=== PATIENT | male | born 1990 | race Caucasian/White ===

== ENCOUNTER 2024-01-07 05:51 | Inpatient (IN) | payer BC, OTHER ==
[2024-01-07] MEDS ORDERED: LORazepam 2 MG/ML INJ IV PRN (06:13)
--- NOTE | 2024-01-07 06:21 | ED ---
Chest Pain HPI - General Chief Complaint: Chest Pain Stated Complaint: Chest pain Time Seen by Provider: 01/07/24 06:01 Source: patient, EMS, RN notes reviewed Mode of arrival: EMS Limitations: no limitations - History of Present Illness Initial Comments: This is a 33 year old male who presents to the emergency department for chest pain. Patient states that he has had chest pain for the last 3 days. Additionally, states that he ran out of his Klonopin at the end of November because he took it too fast. This was prescribed to him. He has also started drinking alcohol more regularly and was in rehab last month for this. He did have alcohol last night, states that he had malt liquor. States that he drinks alcohol to help with his chest pain as well. Patient is shaking significantly in the examination room and reports a history of alcohol withdrawals. Unsure if he has a history of withdrawal seizures, but does state that he shakes pretty v igorously. Plans to check into [facility] as soon as possible for rehab again. Patient also reports a history of asthma and states that he feels short of breath. He has not been using breathing treatments at home, as he states that these make him more anxious, and because he is already anxious he did not want to make it worse. MD Complaint: chest pain - Related Data Home Medications Medication Instructions Recorded Confirmed Acamprosate Calcium [Campral] 666 mg PO TID 01/07/24 01/07/24 Albuterol Inhaler [Ventolin Hfa 1 - 2 puff INHALATION RT-Q6H PRN 01/07/24 01/07/24 Inhaler] Fluticasone Nasal [place] [Flonase 1 spray EA NOSTRIL DAILY PRN 01/07/24 01/07/24 Nasal [place]] Fluticasone/Umeclidin/Vilanter 1 puff INHALATION RT-DAILY 01/07/24 01/07/24 [Trelegy Ellipta 200-62.5-25] Gabapentin 300 mg PO TID PRN 01/07/24 01/07/24 Ipratropium-Albuterol Nebulize 3 ml INHALATION RT-QID PRN 01/07/24 01/07/24 [Duoneb 0.5 mg-3 mg/3 ml Soln] Montelukast [Singulair] 10 mg PO DAILY 01/07/24 01/07/24 clonazePAM [KlonoPIN] 0.5 mg PO DAILY PRN 01/07/24 01/07/24 traZODone HCL 150 mg PO HS 01/07/24 01/07/24 Allergies Allergy/AdvReac Type Severity Reaction Status Date / Time propranolol AdvReac Chest Pain Verified 01/07/24 12:45 Review of Systems ROS Statement: Those systems with pertinent positive or pertinent negative responses have been documented in the HPI. ROS Other: All systems not noted in ROS Statement are negative. Past Medical History Past Medical History: Asthma, COPD Past Surgical History: No Surgical Hx Reported Past Psychological History: Anxiety, Depression Smoking Status: Current every day smoker Past Alcohol Use History: Abuse, Daily Past Drug Use History: Marijuana General Exam Limitations: no limitations General appearance: alert, anxious Head exam: Present: atraumatic, normocephalic, normal inspection Respiratory exam: Present: wheezes, decreased breath sounds, prolonged expiratory Cardiovascular Exam: Present: regular rate, normal rhythm, normal heart sounds. Absent: systolic murmur, diastolic murmur, rubs, gallop, clicks Neurological exam: Present: alert, oriented X3, CN II-XII intact Psychiatric exam: Present: normal affect, normal mood Skin exam: Present: warm, dry, intact, normal color. Absent: rash Course Vital Signs 01/07/24 01/07/24 01/07/24 05:52 07:31 08:38 Temperature 97.5 F L Pulse Rate 97 86 82 Respiratory 24 18 16 Rate Blood Pressure 103/86 124/74 106/74 O2 Sat by Pulse 98 95 Oximetry 01/07/24 01/07/24 01/07/24 10:59 13:07 17:05 Temperature Pulse Rate 93 101 H 96 Respiratory 20 16 Rate Blood Pressure 149/89 146/96 O2 Sat by Pulse 99 98 Oximetry 01/07/24 01/07/24 01/07/24 19:23 21:41 23:13 Temperature Pulse Rate 85 77 76 Respiratory 18 16 18 Rate Blood Pressure 116/78 122/78 O2 Sat by Pulse 99 99 Oximetry Chest Pain MDM - MDM This is a 33 year old male who presents to the emergency department for chest pain. Was pt. sent in by a medical professional or institution? @ -No Did you speak to anyone other than the patient for history? @ -No Did you review nursing and triage notes? @ -Yes, and I agree, it is accurate with regards to the patient's symptoms. Were old charts reviewed? @ -No Differential Diagnosis? @ -Differential Chest Pain: Stable Angina, Unstable Angina, STEMI, NSTEMI Aortic Dissection, Pneumothorax, Musculoskeletal, Esophageal Spasm GERD, Cholecystitis, Pancreatitis, Zoster, this is not meant to be an all-inclusive list. EKG interpreted by me (3pts min.)? @ -EKG interpreted by me demonstrating the following: Sinus rhythm. Ventricular rate 96 bpm, CA interval 154 ms, QRS duration 93 ms, QTc 390 ms. X-rays interpreted by me (1pt min.)? @ -Chest x-ray obtained, my interpretation identifies no localized consolidations or infiltrates. CT interpreted by me (1pt min.)? @ -Not obtained U/S interpreted by me (1pt. min.)? @ -Not obtained What testing was considered but not performed? (CT, X-rays, U/S, labs)? Why? @ -None What meds were considered but not given? Why? @ -None Did you discuss the management of the patient with other professionals? @ -Yes, [facility], who accepts the patient for admission. Did you reconcile home meds? @ -No Was smoking cessation discussed for >3mins.? @ -I discussed smoking cessation for greater than 3 minutes. The risk of smoking were discussed with the patient including but not limited to risks of cancer, stroke, coronary artery disease and COPD. Also discussed with patient were multiple methods of quitting smoking. Lastly we discussed the financial cost of smoking. Was critical care preformed (if so, how long)? @ -No Were there social determinants of health that impacted care today? How? (Homelessness, low income, unemployed, alcoholism, drug addiction, transportation, low edu. Level, literacy, decrease access to med. care, residential, rehab)? @ -Alcoholism, contributing to his withdrawal symptoms today. Was there de-escalation of care discussed even if they declined? (Discuss DNR or withdrawal of care, Hospice)? @ -No What co-morbidities impacted this encounter? (DM, HTN, Smoking, COPD, CAD, Cancer, CVA, Hep., AIDS, mental health diagnosis, sleep apnea, morbid obesity)? @ -Smoking, asthma, COPD, alcohol abuse Was patient admitted / discharged? @ -Admitted. Lab work unremarkable. Troponin negative. Chest x-ray reveals no acute process. Patient pacing and notably anxious on arrival with initial CIWA of 16. CIWA protocol was initiated in the patient was admitted to medicine for alcohol withdrawals. Serial troponins were ordered, however chest pain unlikely to be cardiac in nature. Undiagnosed new problem with uncertain prognosis? @ -None Drug Therapy requiring intensive monitoring for toxicity (Heparin, Nitro, Insulin, Cardizem)? @ -None Were any procedures done? @ -None Diagnosis/symptom? @ -Alcohol withdrawals Acute, or Chronic, or Acute on Chronic? @ -Acute Uncomplicated (without systemic symptoms) or Complicated (systemic symptoms)? @ -Complicated Side effects of treatment? @ -None Exacerbation, Progression, or Severe Exacerbation] @ -Not applicable Poses a threat to life or bodily function? @ -Yes Return precautions reviewed in depth, the patient is instructed to return to the emergency department with any new, worsening, or concerning symptoms. Patient verbalized understanding. This case was discussed in detail with the attending ED physician, Dr. Ruelas. Presentation, findings, and treatment plan discussed in detail as well. Disposition Clinical Impression: Alcohol withdrawal, Nicotine dependence Disposition: ADMITTED IP TO THIS [facility] Time of Disposition: 11:36
[2024-01-07] MEDS: THIAMINE 100 MG/ML 2 ML VIAL IM STA (06:43)
[2024-01-07] MEDS: KETOROLAC 15 MG/ML 1 ML VIAL IVP STA (06:44)
[2024-01-07] MEDS: LORazepam 2 MG/ML INJ IV PRN ×3 (06:44→23:47)
[2024-01-07 07:02] LABS: INR 0.9 (<1.2); Prothrombin Time 10.1 sec (10.0-12.5)
[2024-01-07 07:08] LABS: ALT 20 U/L (4-49); AST 43 U/L (17-59); African American GFR (CKD) >90 (>60 ml/min/1.73 sqM); Albumin 4.3 g/dL (3.5-5.0); Alcohol 51 mg/dL; Alkaline Phosphatase 88 U/L (38-126); Anion Gap 12 mmol/L; Blood Urea Nitrogen 8 mg/dL (9-20); Calcium 9.4 mg/dL (8.4-10.2); Carbon Dioxide 18 mmol/L (22-30); Chloride 107 mmol/L (98-107); Glucose 85 mg/dL (74-99); Magnesium 1.9 mg/dL (1.6-2.3); Non-African American GFR(CKD) >90 (>60 ml/min/1.73 sqM); Potassium 3.6 mmol/L (3.5-5.1); Sodium 137 mmol/L (137-145); Total Bilirubin 1.1 mg/dL (0.2-1.3); Total Protein 6.7 g/dL (6.3-8.2)
--- NOTE | 2024-01-07 07:41 | XR ---
EXAMINATION TYPE: XR chest 2V DATE OF EXAM: 01/07/2024 COMPARISON: None HISTORY: 33-year-old male with chest pain TECHNIQUE: PA and lateral views FINDINGS: The cardiomediastinal silhouette, aorta, and pulmonary vasculature are within normal limits. Mild hyp erinflation likely relates to depth of inspiration rather than emphysema given patient's age. Lungs a nd pleural spaces are clear. IMPRESSION: No acute cardiopulmonary process.
[2024-01-07 08:01] LABS: Basophils % (A) 0 %; Eosinophils # (A) 0.3 k/uL (0-0.7); Eosinophils % (A) 3 %; HCT 40.9 % (39.0-53.0); HGB 13.5 gm/dL (13.0-17.5); Lymphocytes % (A) 9 %; MCH 31.8 pg (25.0-35.0); MCV 96.2 fL (80.0-100.0); Mean Platelet Volume 8.5; Monocytes # (A) 0.5 k/uL (0-1.0); Monocytes % (A) 5 %; Neutrophils # (A) 9.4 k/uL (1.3-7.7); Neutrophils % (A) 83 %; Platelet Count 230 k/uL (150-450); RBC 4.25 m/uL (4.30-5.90); RDW 13.1 % (11.5-15.5); WBC 11.3 k/uL (3.8-10.6)
[2024-01-07 11:30] LABS: Amphetamine Screen,Urine Not Detected (NotDetected); Barbiturate Screen,Urine Not Detected (NotDetected); Benzodiazepines Screen,Urine Detected (NotDetected); Cocaine Screen,Urine Not Detected (NotDetected); Methadone Screen, Urine Not Detected (NotDetected); Opiate Screen,Urine Not Detected (NotDetected); Oxycodone Screen, Urine Not Detected (NotDetected); Phencyclidine Screen,Urine Not Detected (NotDetected); Tricyclic Antidepressant,Urine Not Detected (NotDetected); Urn Cannabinoid Scrn Detected (NotDetected)
[2024-01-07] MEDS ORDERED: ACETAMINOPHEN TAB 325 MG TAB PO PRN (11:37)
[2024-01-07] MEDS ORDERED: NALOXONE 0.4 MG/ML 1 ML VIAL IV PRN (11:37)
[2024-01-07] MEDS: PANTOPRAZOLE 40 MG/10 ML VIAL IVP SCH (12:46)
[2024-01-07] MEDS: NICOTINE 21MG/24HR PATCH TRANSDERM SCH (12:46)
--- NOTE | 2024-01-07 12:56 | P.HPIM ---
History of Present Illness Patient is a 33-year-old male admitted is being admitted for alcohol withdrawal patient has drink was yesterday and patient serum alcohol level was 51. Patient is having shaking improved with Ativan. Patient is willing to quit alcohol was complaining of some nonspecific chest pain which is noncardiac in nature troponins are negative EKG showed nonspecific ST-T wave changes. Patient is willing to quit alcohol patient was in alcohol rehabilitation program mental November. Patient had any fever chills nausea vomiting dysuria. Urine drug screen is positive for benzodiazepines and marijuana REVIEW OF SYSTEMS: CONSTITUTIONAL: No fever, no malaise, no fatigue. HEENT: No recent visual problems or hearing problems. Denied any sore throat. CARDIOVASCULAR: No chest pain, orthopnea, PND, no palpitations, no syncope. PULMONARY: No shortness of breath, no cough, no hemoptysis. GASTROINTESTINAL: No diarrhea, no nausea, no vomiting, no abdominal pain. NEUROLOGICAL: No headaches, no weakness, no numbness. HEMATOLOGICAL: Denies any bleeding or petechiae. GENITOURINARY: Denies any burning micturition, frequency, or urgency. MUSCULOSKELETAL/RHEUMATOLOGICAL: Denies any joint pain, swelling, or any muscle pain. ENDOCRINE: Denies any polyuria or polydipsia. The rest of the 14-point review of systems is negative. PHYSICAL EXAMINATION: GENERAL: The patient is alert and oriented x3, not in any acute distress. Well developed, well nourished. Patient is shaking and appears to have significant alcohol withdrawals HEENT: Pupils are round and equally reacting to light. EOMI. No scleral icterus. No conjunctival pallor. Normocephalic, atraumatic. No pharyngeal erythema. No thyromegaly. CARDIOVASCULAR: S1 and S2 present. No murmurs, rubs, or gallops. PULMONARY: Chest is clear to auscultation, no wheezing or crackles. ABDOMEN: Soft, nontender, nondistended, normoactive bowel sounds. No palpable organomegaly. MUSCULOSKELETAL: No joint swelling or deformity. EXTREMITIES: No cyanosis, clubbing, or pedal edema. NEUROLOGICAL: Gross neurological examination did not reveal any focal deficits. SKIN: No rashes. Assessment and plan -Alcohol withdrawal: Patient is on Ativan CIWA protocol titrate as was addressed with this protocol. -Possible alcoholic gastritis: Patient was started on Protonix -Marijuana use and nicotine use: Counseling was provided patient was started on 21 mcg of nicotine patch smokes about 20 cigarettes a day. -COPD without any acute exacerbation -Alcohol abuse social work consultation, extensive counseling was provided DVT prophylaxis: Lovenox as I do not expect much of ambulation Past Medical History Past Medical History: Asthma, COPD Past Surgical History: No Surgical Hx Reported Past Psychological History: Anxiety, Depression Smoking Status: Current every day smoker Past Alcohol Use History: Abuse, Daily Past Drug Use History: Marijuana Medications and Allergies Home Medications Medication Instructions Recorded Confirmed Type Acamprosate Calcium [Campral] 666 mg PO TID 01/07/24 01/07/24 History Albuterol Inhaler [Ventolin Hfa 1 - 2 puff INHALATION RT-Q6H PRN 01/07/24 01/07/24 History Inhaler] Fluticasone Nasal [place] [Flonase 1 spray EA NOSTRIL DAILY PRN 01/07/24 01/07/24 History Nasal [place]] Fluticasone/Umeclidin/Vilanter 1 puff INHALATION RT-DAILY 01/07/24 01/07/24 History [Trelegy Ellipta 200-62.5-25] Gabapentin 300 mg PO TID PRN 01/07/24 01/07/24 History Ipratropium-Albuterol Nebulize 3 ml INHALATION RT-QID PRN 01/07/24 01/07/24 History [Duoneb 0.5 mg-3 mg/3 ml Soln] Montelukast [Singulair] 10 mg PO DAILY 01/07/24 01/07/24 History clonazePAM [KlonoPIN] 0.5 mg PO DAILY PRN 01/07/24 01/07/24 History traZODone HCL 150 mg PO HS 01/07/24 01/07/24 History Allergies Allergy/AdvReac Type Severity Reaction Status Date / Time propranolol AdvReac Chest Pain Verified 01/07/24 12:45 Physical Exam Vitals: Vital Signs Temp Pulse Resp BP Pulse Ox 01/07/24 10:59 93 20 149/89 99 01/07/24 08:38 82 16 106/74 01/07/24 07:31 86 18 124/74 95 01/07/24 05:52 97.5 F L 97 24 103/86 98 Intake and Output 01/06/24 01/07/2424 22:59 06:59 14:59 Other: Weight 58.967 kg Results CBC & Chem 7: 01/07/24 07:33 01/07/24 06:46 Labs: Abnormal Lab Results - Last 24 Hours (Table) 01/07/24 01/07/24 01/07/24 Range/Units 06:46 06:46 07:33 WBC 11.3 H (3.8-10.6) k/uL RBC 4.25 L (4.30-5.90) m/uL Neutrophils # 9.4 H (1.3-7.7) k/uL Carbon Dioxide 18 L (22-30) mmol/L BUN 8 L (9-20) mg/dL U Benzodiazepines Scrn Detected H (NotDetected) U Marijuana (THC) Screen Detected H (NotDetected)
[2024-01-07] MEDS: SODIUM CHLORIDE 0.9% 1,000 ML IV SCH (17:13)
[2024-01-07] MEDS: KETOROLAC 15 MG/ML 1 ML VIAL IVP PRN (17:13)
[2024-01-07] MEDS: ENOXAPARIN 40 MG/0.4 ML SYRINGE SQ SCH (17:17)
[2024-01-07] MEDS: traZODone HCL 50 MG TAB PO SCH (22:59)
[2024-01-08] MEDS: PANTOPRAZOLE 40 MG TABLET PO SCH (10:29)
[2024-01-08] MEDS: THIAMINE 100 MG TAB PO SCH (10:29)
--- NOTE | 2024-01-08 16:49 | P.PN ---
Subjective Progress Note Date: 01/08/24 Patient is a 33-year-old male admitted is being admitted for alcohol withdrawal patient has drink was yesterday and patient serum alcohol level was 51. Patient is having shaking improved with Ativan. Patient is willing to quit alcohol was complaining of some nonspecific chest pain which is noncardiac in nature troponins are negative EKG showed nonspecific ST-T wave changes. Patient is willing to quit alcohol patient was in alcohol rehabilitation program november. Patient had any fever chills nausea vomiting dysuria. Urine drug screen is positive for benzodiazepines and marijuana 01/08/2024 Patient is evaluated today on the medical floor. He remains on IV Ativan CIWA protocol. He is not reporting any nausea vomiting or diarrhea. He has tolerated some diet. He is tremulous at baseline and is requiring frequent doses of Ativan. He is in place a nicotine patch which he states is helping. He is being hydrated. REVIEW OF SYSTEMS: CONSTITUTIONAL: No fever, no malaise, no fatigue. HEENT: No recent visual problems or hearing problems. Denied any sore throat. CARDIOVASCULAR: No chest pain, orthopnea, PND, no palpitations, no syncope. PULMONARY: No shortness of breath, no cough, no hemoptysis. GASTROINTESTINAL: No diarrhea, no nausea, no vomiting, no abdominal pain. NEUROLOGICAL: No headaches, no weakness, no numbness. PHYSICAL EXAMINATION: GENERAL: The patient is alert and oriented x3, not in any acute distress. Well developed, well nourished. Patient is shaking and appears to have significant alcohol withdrawals HEENT: Pupils are round and equally reacting to light. EOMI. No scleral icterus. No conjunctival pallor. Normocephalic, atraumatic. No pharyngeal erythema. No thyromegaly. CARDIOVASCULAR: S1 and S2 present. No murmurs, rubs, or gallops. PULMONARY: Chest is clear to auscultation, no wheezing or crackles. ABDOMEN: Soft, nontender, nondistended, normoactive bowel sounds. No palpable organomegaly. MUSCULOSKELETAL: No joint swelling or deformity. EXTREMITIES: No cyanosis, clubbing, or pedal edema. NEUROLOGICAL: Gross neurological examination did not reveal any focal deficits. SKIN: No rashes. Assessment and plan -Alcohol withdrawal: Patient is on Ativan CIWA protocol continue to monitor for acute alcohol withdrawal -Possible alcoholic gastritis: Patient was started on Protonix -Marijuana use and nicotine use: Counseling was provided patient was started on 21 mcg of nicotine patch smokes about 20 cigarettes a day. -COPD without any acute exacerbation -Alcohol abuse social work consultation, extensive counseling was provided DVT prophylaxis: Lovenox as I do not expect much of ambulation GI prophylaxis with Protonix as mentioned Full code He is not quite ready for discharge she is still requiring frequent doses of IV Ativan and tremulous at baseline. We will continue to monitor the patient overnight and repeat labs in the morning. The impression and plan of care has been dictated by Jazmine Hadley, Nurse Practitioner as directed. Dr. bAbey MD I have performed a history and physical examination and medical decision making of this patient, discussed the same with the dictator, and agree with the dictators assessment and plan as written, documented as a scribe. Based on total visit time, I have performed more than 50% of this visit. Objective - Vital Signs Vital signs: Vital Signs Temp 98.0 F 01/08/24 11:54 Pulse 79 01/08/24 11:54 Resp 16 01/08/24 11:54 BP 122/76 01/08/24 11:54 Pulse Ox 98 01/08/24 11:54 FiO2 Intake & Output 01/07/24 01/08/24 01/08/24 18:59 06:59 18:59 Intake Total 1020 Balance 1020 Weight 58.967 kg Intake: Intake, IV Titration 900 Amount Sodium Chloride 0.9% 1, 900 000 ml @ 75 mls/hr IV . [id number] [facility] Rx#:[id number] Oral 120 - Labs CBC & Chem 7: 01/07/24 07:33 01/07/24 06:46 Assessment and Plan Time with Patient: Less than 30
[2024-01-08] MEDS ORDERED: IPRATROPIUM-ALBUTEROL 3 ML NEB INHALATION PRN (22:17)
[2024-01-09] MEDS: SYMBICORT 80-4.5 MCG INHALER INHALATION SCH (07:20)
[2024-01-09] MEDS ORDERED: FLUTICASONE 50MCG/SPRAY NASAL 16GM EA NOSTRIL PRN (09:00)
[2024-01-09] MEDS: MONTELUKAST 10 MG TAB PO SCH (09:38)
[2024-01-09] MEDS: LORazepam 1 MG TAB PO PRN (11:48)
--- NOTE | 2024-01-09 16:53 | P.PN ---
Subjective Progress Note Date: 01/09/24 Patient is a 33-year-old male admitted is being admitted for alcohol withdrawal patient has drink was yesterday and patient serum alcohol level was 51. Patient is having shaking improved with Ativan. Patient is willing to quit alcohol was complaining of some nonspecific chest pain which is noncardiac in nature troponins are negative EKG showed nonspecific ST-T wave changes. Patient is willing to quit alcohol patient was in alcohol rehabilitation program mental November. Patient had any fever chills nausea vomiting dysuria. Urine drug screen is positive for benzodiazepines and marijuana 01/08/2024 Patient is evaluated today on the medical floor. He remains on IV Ativan CIWA protocol. He is not reporting any nausea vomiting or diarrhea. He has tolerated some diet. He is tremulous at baseline and is requiring frequent doses of Ativan. He is in place a nicotine patch which he states is helping. He is being hydrated. 01/09/2024 Patient is evaluated today on the medical floor. He remains on IV CIWA protocol. Troponin level is negative x 3. Hemodynamically he is stable. He remains tr emulous and requiring IV ativan every 3 hours overnight. Discussed with patient about starting librium and patient is agreeing hoping to be able to cut back on the ativan. REVIEW OF SYSTEMS: CONSTITUTIONAL: No fever, no malaise, no fatigue. HEENT: No recent visual problems or hearing problems. Denied any sore throat. CARDIOVASCULAR: No chest pain, orthopnea, PND, no palpitations, no syncope. PULMONARY: No shortness of breath, no cough, no hemoptysis. GASTROINTESTINAL: No diarrhea, no nausea, no vomiting, no abdominal pain. NEUROLOGICAL: No headaches, no weakness, no numbness. PHYSICAL EXAMINATION: GENERAL: The patient is alert and oriented x3, not in any acute distress. Well developed, well nourished. Patient is shaking and appears to have significant alcohol withdrawals HEENT: Pupils are round and equally reacting to light. EOMI. No scleral icterus. No conjunctival pallor. Normocephalic, atraumatic. No pharyngeal erythema. No thyromegaly. CARDIOVASCULAR: S1 and S2 present. No murmurs, rubs, or gallops. PULMONARY: Chest is clear to auscultation, no wheezing or crackles. ABDOMEN: Soft, nontender, nondistended, normoactive bowel sounds. No palpable organomegaly. MUSCULOSKELETAL: No joint swelling or deformity. EXTREMITIES: No cyanosis, clubbing, or pedal edema. NEUROLOGICAL: Gross neurological examination did not reveal any focal deficits. SKIN: No rashes. Assessment and plan -Alcohol withdrawal: Patient is on Ativan CIWA protocol continue to monitor for acute alcohol withdrawal will be started on oral librium scheduled and continue with the PRN ativan. -Possible alcoholic gastritis: Patient was started on Protonix -Marijuana use and nicotine use: Counseling was provided patient was started on 21 mcg of nicotine patch smokes about 20 cigarettes a day. -COPD without any acute exacerbation -Alcohol abuse social work consultation, extensive counseling was provided DVT prophylaxis: Lovenox GI prophylaxis with Protonix as mentioned Full code He is not quite ready for discharge she is still requiring frequent doses of IV Ativan and tremulous at baseline. Started on librium. Follow up in the AM. The impression and plan of care has been dictated by Jazmine Hadley, Nurse Practitioner as directed. Dr. Abbey MD I have performed a history and physical examination and medical decision making of this patient, discussed the same with the dictator, and agree with the dictators assessment and plan as written, documented as a scribe. Based on total visit time, I have performed more than 50% of this visit. Objective - Vital Signs Vital signs: Vital Signs Temp 97.5 F L 01/09/24 07:53 Pulse 77 01/09/24 07:53 Resp 16 01/09/24 07:53 BP 136/83 01/09/24 07:53 Pulse Ox 97 01/09/24 07:53 FiO2 Intake & Output 01/08/24 01/09/24 01/09/24 18:59 06:59 18:59 Other: Voiding Method Toilet Toilet Urinal Urinal # Voids 3 - Labs CBC & Chem 7: 01/07/24 07:33 01/07/24 06:46 Assessment and Plan Time with Patient: Less than 30
[2024-01-09] MEDS: chlordiazePOXIDE 25 MG CAP PO SCH (17:42)
[2024-01-10 02:41] VITALS: TEMP 97.5
[2024-01-10 08:15] VITALS: BP 123/82; PULSE 83; RESP 16
[2024-01-10 08:59] LABS: Basophils # (A) 0.04 X 10*3/uL (0.00-0.10); Basophils % (A) 0.7 %; Eosinophils # (A) 0.45 X 10*3/uL (0.04-0.35); Eosinophils % (A) 7.4 %; HCT 39.3 % (39.6-50.0); HGB 13.3 g/dL (13.0-17.0); Lymphocytes # (A) 1.39 X 10*3/uL (0.90-5.00); Lymphocytes % (A) 22.9 %; MCH 30.9 pg (27.0-32.0); MCHC 33.8 g/dL (32.0-37.0); MCV 91.2 FL (80.0-97.0); Mean Platelet Volume 10.6 FL (9.5-12.2); Monocytes # (A) 0.69 X 10*3/uL (0.20-1.00); Monocytes % (A) 11.4 %; NRBC Per 100 WBC 0 X 10*3/uL (0.00-0.01); Neutrophils # (A) 3.48 X 10*3/uL (1.80-7.70); Neutrophils % (A) 57.4 %; Platelet Count 218 X 10*3/uL (140-440); RBC 4.31 X 10*6/uL (4.40-5.60); RDW 12.2 % (11.5-14.5); WBC 6.06 X 10*3/uL (4.50-10.00)
[2024-01-10 09:15] LABS: BUN/Creat Ratio 7.67 Ratio (12.00-20.00); Blood Urea Nitrogen 6.9 mg/dL (9.0-27.0); Calcium 9.2 mg/dL (8.7-10.3); Carbon Dioxide 21.2 mmol/L (21.6-31.8); Chloride 103 mmol/L (96-109); Glucose 82 mg/dL (70-110); Magnesium 1.8 mg/dL (1.5-2.4); Potassium 3.7 mmol/L (3.5-5.5); Sodium 137 mmol/L (135-145)
--- NOTE | 2024-01-11 21:17 | P.DS ---
Providers Date of admission: 01/07/24 12:24 Attending physician: Jada Waterman Primary care physician: Stated None Hospital Course: Final Diagnosis -Alcohol withdrawal: treated with librium and ativan CIWA protocol. -Possible alcoholic gastritis: Patient was started on Protonix -Marijuana use and nicotine use: Counseling was provided patient was started on 21 mcg of nicotine patch smokes about 20 cigarettes a day. -COPD without any acute exacerbation -Alcohol abuse social work consultation, extensive counseling was provided Discharge Disposition Patient stable for discharge home and will continue on oral Librium table for the next 6 days. Patient is advised to quit alcohol and he is agreeing on wanting to discharge home. He is given referrals to [facility] in [place]. He is recommended to follow up with his PCP Dr. Pancho Ray in 2 to 3 days. Hospital Course Patient is a 33-year-old male admitted is being admitted for alcohol withdrawal patient has drink was the day before he came in to the hospital and patient serum alcohol level was 51 on admission. He comes in for acute alcohol withdrawal and impending DTs and has been started on ativan CIWA protocol, thiamine and B1 vitamins. Patient is having shaking improved with Ativan. Patient is willing to quit alcohol was complaining of some nonspecific chest pain which is noncardiac in nature troponins are negative EKG showed nonspecific ST-T wave changes. Patient is willing to quit alcohol patient was in alcohol rehabilitation program in November. Patient denies any fever chills nausea vomiting dysuria. Urine drug screen is positive for benzodiazepines and marij uana. Patient was monitored on the medical floor with clinical improvement. His blood work remains unremarkable. Hemodynamically he is stable. He will be discharged home with above mentioned recommendations. Please see medication reconciliation for a list of current medications. Thank you for allowing us to participate in the care of this patient. The impression and plan of care has been dictated by Jazmine Hadley Nurse Practitioner as directed. Dr. Abbey MD I have performed a history and physical examination and medical decision making of this patient, discussed the same with the dictator, and agree with the dictators assessment and plan as written, documented as a scribe. Based on total visit time, I have performed more than 50% of this visit. Patient Condition at Discharge: Stable Plan - Discharge Summary New Discharge Prescriptions: New Pantoprazole [Protonix] 40 mg PO AC-BRKFST #30 tab chlordiazePOXIDE HCl [Librium] 25 mg PO TID 3 Days #12 capsule Thiamine [Vitamin B-1] 100 mg PO DAILY #30 tab Continue Montelukast [Singulair] 10 mg PO DAILY Gabapentin 300 mg PO TID PRN PRN Reason: withdrawl/nerve pain Fluticasone Nasal [place] [Flonase Nasal [place]] 1 spray EA NOSTRIL DAILY PRN PRN Reason: Allergy Symptoms Ipratropium-Albuterol Nebulize [Duoneb 0.5 mg-3 mg/3 ml Soln] 3 ml INHALATION RT-QID PRN PRN Reason: Shortness Of Breath traZODone HCL 150 mg PO HS Fluticasone/Umeclidin/Vilanter [Trelegy Ellipta 200-62.5-25] 1 puff INHALATION RT-DAILY Albuterol Inhaler [Ventolin Hfa Inhaler] 1 - 2 puff INHALATION RT-Q6H PRN PRN Reason: Shortness Of Breath Acamprosate Calcium [Campral] 666 mg PO TID Discontinued clonazePAM [KlonoPIN] 0.5 mg PO DAILY PRN PRN Reason: Anxiety Discharge Medication List Acamprosate Calcium [Campral] 666 mg PO TID 01/07/24 [History] Albuterol Inhaler [Ventolin Hfa Inhaler] 1 - 2 puff INHALATION RT-Q6H PRN 01/07/24 [History] Fluticasone Nasal [place] [Flonase Nasal [place]] 1 spray EA NOSTRIL DAILY PRN 01/07/24 [History] Fluticasone/Umeclidin/Vilanter [Trelegy Ellipta 200-62.5-25] 1 puff INHALATION RT-DAILY 01/07/24 [History] Gabapentin 300 mg PO TID PRN 01/07/24 [History] Ipratropium-Albuterol Nebulize [Duoneb 0.5 mg-3 mg/3 ml Soln] 3 ml INHALATION RT-QID PRN 01/07/24 [History] Montelukast [Singulair] 10 mg PO DAILY 01/07/24 [History] traZODone HCL 150 mg PO HS 01/07/24 [History] Pantoprazole [Protonix] [facility] 01/10/24 [Rx] Thiamine [Vitamin B-1] 100 mg PO DAILY #30 tab 01/10/24 [Rx] chlordiazePOXIDE HCl [Librium] 25 mg PO TID 3 Days #12 capsule 01/11/24 [Rx] Follow up Appointment(s)/Referral(s): [facility] [Outside] - 02/07/24 12:00 pm ([facility] UP APPT WITH RICHARD - PATIENT AWARE OF TIME) Pancho Ray MD [REFERRING] - 1-2 Days Activity/Diet/Wound Care/Special Instructions: PCP: Pancho Ray, DO - Address: [address] [place] [id number] - [facility] P: [phone] Discharge/Stand Alone Forms: AA Meetings [place], Who Do I Call?, Community Resources, Outpatient Counseling, Inp Substance Abuse Facilities Discharge Disposition: HOME SELF-CARE
== END 2024-01-10 13:08 | disposition home or self-care (01) | DRG 775 ==
LOC: EC 05:51 → 6NMEDSUR 12:23 → OBSVTOIN 12:24 → 6NMEDSUR 18:01 → 5NMEDONC 20:37
PROVIDERS: ADMIT Internal Medicine; ATTEND Internal Medicine
PROC: HZ2ZZZZ Detoxification Services for Substance Abuse Treatment (ICD-10-PCS; principal; 2024-01-07)
DX: F10.239 Alcohol dependence with withdrawal, unspecified (principal); K29.20 Alcoholic gastritis without bleeding; F32.A Depression, unspecified; F17.210 Nicotine dependence, cigarettes, uncomplicated; F41.9 Anxiety disorder, unspecified; Y90.2 Blood alcohol level of 40-59 mg/100 ml; J44.89 Other specified chronic obstructive pulmonary disease; Z71.41 Alcohol abuse counseling and surveillance of alcoholic; Z71.51 Drug abuse counseling and surveillance of drug abuser
CPT/HCPCS: 36415; 71046; 80048; 80053; 80306; 80320; 83735; 84484; 85025; 85610; 85730; 93005; 94640; 96361; 96372; 96374; 96375; 96376; 99285

== ENCOUNTER 2024-01-10 23:05 | Emergency (ER) | payer OTHER ==
[2024-01-10 23:16] VITALS: TEMP 98.5
[2024-01-10] MEDS: LORazepam 2 MG/ML INJ IV STA (23:29)
[2024-01-10] MEDS: SODIUM CHLORIDE 0.9% 1,000 ML IV STA ×2 (23:29→23:30)
[2024-01-10] MEDS: SODIUM CHLORIDE 0.9% 500 ML 500 ML IV STA (23:30)
--- NOTE | 2024-01-10 23:30 | ED ---
Anxiety HPI - General Chief Complaint: Anxiety Stated Complaint: Chest pain, Withdrawal Time Seen by Provider: 01/10/24 23:11 Source: patient, EMS, RN notes reviewed, old records reviewed Mode of arrival: EMS Limitations: no limitations, altered mental status - History of Present Illness Initial Comments: This is a 33-year-old male to the ER for evaluation today. Patient of recent hospital admission. Patient was just discharged earlier this morning and complains and today for altered mental status lightheadedness weakness not feeling well with occasional nausea. Patient does admit to drinking alcohol today. MD Complaint: anxiety, heart racing, other (Intoxication) -: days(s) Symptoms: palpitations, muscle cramps Place: home Previous History of Same: Yes Severity: moderate Quality: constant Provoking factors: emotional stress Worsens With: nothing Associated symptoms: chest pain, diaphoresis - Related Data Home Medications: Home Medications Medication Instructions Recorded Confirmed Acamprosate Calcium [Campral] 666 mg PO TID 01/07/24 01/07/24 Albuterol Inhaler [Ventolin Hfa 1 - 2 puff INHALATION RT-Q6H PRN 01/07/24 01/07/24 Inhaler] Fluticasone Nasal [place] [Flonase 1 spray EA NOSTRIL DAILY PRN 01/07/24 01/07/24 Nasal [place]] Fluticasone/Umeclidin/Vilanter 1 puff INHALATION RT-DAILY 01/07/24 01/07/24 [Trelegy Ellipta 200-62.5-25] Gabapentin 300 mg PO TID PRN 01/07/24 01/07/24 Ipratropium-Albuterol Nebulize 3 ml INHALATION RT-QID PRN 01/07/24 01/07/24 [Duoneb 0.5 mg-3 mg/3 ml Soln] Montelukast [Singulair] 10 mg PO DAILY 01/07/24 01/07/24 traZODone HCL 150 mg PO HS 01/07/24 01/07/24 Previous Rx's Medication Instructions Recorded Pantoprazole [Protonix] 40 mg PO AC-BRKFST #30 tab 01/10/24 Thiamine [Vitamin B-1] 100 mg PO DAILY #30 tab 01/10/24 chlordiazePOXIDE HCl [Librium] 25 mg PO TID 3 Days #12 capsule 01/11/24 Allergies/Adverse Reactions: Allergies Allergy/AdvReac Type Severity Reaction Status Date / Time propranolol AdvReac Chest Pain Verified 01/10/24 23:53 Review of Systems ROS Statement: Those systems with pertinent positive or pertinent negative responses have been documented in the HPI. ROS Other: All systems not noted in ROS Statement are negative. Past Medical History Past Medical History: Asthma, COPD History of Any Multi-Drug Resistant Organisms: None Reported Past Surgical History: No Surgical Hx Reported Past Psychological History: Anxiety, Depression Smoking Status: Current every day smoker Past Alcohol Use History: Abuse, Daily Past Drug Use History: Marijuana General Exam Limitations: no limitations General appearance: alert, in no apparent distress Head exam: Present: atraumatic, normocephalic, normal inspection Eye exam: Present: normal appearance, PERRL, EOMI. Absent: scleral icterus, conjunctival injection, periorbital swelling ENT exam: Present: normal exam, mucous membranes moist Neck exam: Present: normal inspection. Absent: tenderness, meningismus, lymphadenopathy Respiratory exam: Present: normal lung sounds bilaterally. Absent: respiratory distress, wheezes, rales, rhonchi, stridor Cardiovascular Exam: Present: regular rate, normal rhythm, normal heart sounds. Absent: systolic murmur, diastolic murmur, rubs, gallop, clicks GI/Abdominal exam: Present: soft, normal bowel sounds. Absent: distended, tenderness, guarding, rebound, rigid Extremities exam: Present: normal inspection, full ROM, normal capillary refill. Absent: tenderness, pedal edema, joint swelling, calf tenderness Back exam: Present: normal inspection Neurological exam: Present: alert, oriented X3, CN II-XII intact Psychiatric exam: Present: normal affect, normal mood Skin exam: Present: warm, dry, intact, normal color. Absent: rash Course Vital Signs 01/10/24 01/11/24 01/11/24 23:12 00:49 02:06 Temperature 98.5 F Pulse Rate 99 72 84 Respiratory 18 15 20 Rate Blood Pressure 136/84 114/62 120/64 O2 Sat by Pulse 99 96 96 Oximetry 01/11/24 01/11/24 04:00 06:25 Temperature Pulse Rate 72 63 Respiratory 13 18 Rate Blood Pressure 109/72 135/94 O2 Sat by Pulse Oximetry - Reevaluation(s) Reevaluation #1: 01/10/24 23:57 Medical records reviewed Reevaluation #2: 01/10/24 23:57 Patient symptoms unchanged Reevaluation #3: Patient informed of results and questions answered Reevaluation #4: Was pt. sent in by a medical professional or institution (, WHIT, BATCH OPERATOR, urgent care, hospital, or shelter...) When possible be specific @ -no Did you speak to anyone other than the patient for history (EMS, parent, family, police, friend...)? What history was obtained from this source @ -no Did you review nursing and triage notes (agree or disagree)? Why? @ -agree Are old charts reviewed (outside hosp., previous admission, EMS record, old EKG, old radiological studies, urgent care reports/EKG's, shelter records)? Report findings @ -yes Differential Diagnosis (chest pain, altered mental status, abdominal pain women, abdominal pain men, vaginal bleeding, weakness, fever, dyspnea, syncope, headache, dizziness, GI bleed, back pain, seizure, CVA, palpatations, mental health, musculoskeletal)? @ -prior EKG interpreted by me (3pts min.). @ -yes X-rays interpreted by me (1pt min.). @ -Yes negative for acute disease CT interpreted by me (1pt min.). @ -no U/S interpreted by me (1pt. min.). @ -no What testing was considered but not performed or refused? (CT, X-rays, U/S, labs)? Why? @ -none What meds were considered but not given or refused? Why? @ -none Did you discuss the management of the patient with other professionals (professionals i.e. , WHIT, BATCH OPERATOR, lab, RT, psych nurse, web content & social media manager, roller picker, teacher, corporation officer, pillowcase cleaner)? Give summary @ -no Was smoking cessation discussed for >3mins.? @ -no Was critical care preformed (if so, how long)? @ -no Were there social determinants of health that impacted care today? How? (Homelessness, low income, unemployed, alcoholism, drug addiction, transportat ion, low edu. Level, literacy, decrease access to med. care, correction, rehab)? @ -none Was there de-escalation of care discussed even if they declined (Discuss DNR or withdrawal of care, Hospice)? DNR status @ -no What co-morbidities impacted this encounter? (DM, HTN, Smoking, COPD, CAD, Cancer, CVA, ARF, Chemo, Hep., AIDS, mental health diagnosis, sleep apnea, morbid obesity)? @ -none Was patient admitted / discharged? Hospital course, mention meds given and route, prescriptions, significant lab abnormalities, going to OR and other pertinent info. @ - 33 male to ER with alcohol intoxication and anxiety. Patient symptoms improved here in the ER resting comfortably and can be discharged home Discharge Undiagnosed new problem with uncertain prognosis? @ -no Drug Therapy requiring intensive monitoring for toxicity (Heparin, Nitro, Insulin, Cardizem)? @ -no Were any procedures done? @ -no Diagnosis/symptom? @ -Alcohol intoxication, anxiety Acute, or Chronic, or Acute on Chronic? @ -Acute Uncomplicated (without systemic symptoms) or Complicated (systemic symptoms)? @ -Complicated Side effects of treatment? @ -no Exacerbation, Progression, or Severe Exacerbation? @ -exacerbation Poses a threat to life or bodily function? How? (Chest pain, [place], [place], pneumonia, PE, COPD, DKA, ARF, appy, cholecystitis, CVA, Diverticulitis, Homicidal, Suicidal, threat to staff... and all critical care pts) @ -no Reevaluation #5: Differential Altered Mental Status: Hypoglycemia, DKA, hypercapnia, ETOH, overdose, CO poisoning, trauma, myxedema coma, HTN encephalopathy, infection, encephalitis, psychosis, intercranial hemorrhage, hepatic encephalopathy, meningitis, CVA, this is not meant to be an all-inclusive list Medical Decision Making - Medical Decision Making 33 male to ER with alcohol intoxication and anxiety. Patient symptoms improved here in the ER resting comfortably and can be discharged home - Lab Data Result diagrams: 01/10/24 23:25 01/10/24 23:25 Lab Results 01/10/24 01/10/24 01/10/24 Range/Units 23:25 23:25 23:25 WBC 7.0 (3.8-10.6) k/uL RBC 4.58 (4.30-5.90) m/uL Hgb 14.4 (13.0-17.5) gm/dL Hct 43.1 (39.0-53.0) % MCV 94.1 (80.0-100.0) fL MCH 31.5 (25.0-35.0) pg MCHC 33.4 (31.0-37.0) g/dL RDW 12.6 (11.5-15.5) % Plt Count 236 (150-450) k/uL MPV 7.4 Neutrophils % 58 % Lymphocytes % 24 % Monocytes % 9 % Eosinophils % 5 % Basophils % 1 % Neutrophils # 4.0 (1.3-7.7) k/uL Lymphocytes # 1.7 (1.0-4.8) k/uL Monocytes # 0.6 (0-1.0) k/uL Eosinophils # 0.3 (0-0.7) k/uL Basophils # 0.0 (0-0.2) k/uL PT 10.1 (10.0-12.5) sec INR 0.9 (<1.2) APTT 25.9 (22.0-30.0) sec Sodium 141 (137-145) mmol/L Potassium 3.6 (3.5-5.1) mmol/L Chloride 111 H (98-107) mmol/L Carbon Dioxide 18 L (22-30) mmol/L Anion Gap 12 mmol/L BUN <2 L (9-20) mg/dL Creatinine 0.64 L (0.66-1.25) mg/dL Est GFR (CKD-EPI)AfAm >90 (>60 ml/min/1.73 sqM) Est GFR (CKD-EPI)NonAf >90 (>60 ml/min/1.73 sqM) Glucose 88 (74-99) mg/dL Plasma Lactic Acid Wilber (0.7-2.0) mmol/L Calcium 9.1 (8.4-10.2) mg/dL Phosphorus 4.0 (2.5-4.5) mg/dL Magnesium 2.3 (1.6-2.3) mg/dL Total Bilirubin 0.4 (0.2-1.3) mg/dL AST 22 (17-59) U/L ALT 12 (4-49) U/L Alkaline Phosphatase 65 (38-126) U/L Troponin I (0.000-0.034) ng/mL Total Protein 6.5 (6.3-8.2) g/dL Albumin 4.1 (3.5-5.0) g/dL Lipase 146 (23-300) U/L Serum Alcohol 156 mg/dL 01/10/24 01/10/24 Range/Units 23:25 23:25 WBC (3.8-10.6) k/uL RBC (4.30-5.90) m/uL Hgb (13.0-17.5) gm/dL Hct (39.0-53.0) % MCV (80.0-100.0) fL MCH (25.0-35.0) pg MCHC (31.0-37.0) g/dL RDW (11.5-15.5) % Plt Count (150-450) k/uL MPV Neutrophils % % Lymphocytes % % Monocytes % % Eosinophils % % Basophils % % Neutrophils # (1.3-7.7) k/uL Lymphocytes # (1.0-4.8) k/uL Monocytes # (0-1.0) k/uL Eosinophils # (0-0.7) k/uL Basophils # (0-0.2) k/uL PT (10.0-12.5) sec INR (<1.2) APTT (22.0-30.0) sec Sodium (137-145) mmol/L Potassium (3.5-5.1) mmol/L Chloride (98-107) mmol/L Carbon Dioxide (22-30) mmol/L Anion Gap mmol/L BUN (9-20) mg/dL Creatinine (0.66-1.25) mg/dL Est GFR (CKD-EPI)AfAm (>60 ml/min/1.73 sqM) Est GFR (CKD-EPI)NonAf (>60 ml/min/1.73 sqM) Glucose (74-99) mg/dL Plasma Lactic Acid Wilber 1.8 (0.7-2.0) mmol/L Calcium (8.4-10.2) mg/dL Phosphorus (2.5-4.5) mg/dL Magnesium (1.6-2.3) mg/dL Total Bilirubin (0.2-1.3) mg/dL AST (17-59) U/L ALT (4-49) U/L Alkaline Phosphatase (38-126) U/L Troponin I <0.012 (0.000-0.034) ng/mL Total Protein (6.3-8.2) g/dL Albumin (3.5-5.0) g/dL Lipase (23-300) U/L Serum Alcohol mg/dL - EKG Data -: EKG Interpreted by Me (EKG is sinus 86 MA 170 QRS 101 QTc 401) - Radiology Data Radiology results: report reviewed (Chest x-ray is negative for acute disease), image reviewed Disposition Clinical Impression: Alcohol withdrawal, Acute anxiety, Panic attack, Panic disorder Disposition: HOME SELF-CARE Instructions (If sedation given, give patient instructions): Generalized Anxiety Disorder (ED) Is patient prescribed a controlled substance at d/c from ED?: No Referrals: None,Stated [Primary Care Provider] - 1-2 days Time of Disposition: 04:00
[2024-01-10 23:59] LABS: Basophils % (A) 1 %; Eosinophils # (A) 0.3 k/uL (0-0.7); Eosinophils % (A) 5 %; HCT 43.1 % (39.0-53.0); HGB 14.4 gm/dL (13.0-17.5); Lymphocytes # (A) 1.7 k/uL (1.0-4.8); Lymphocytes % (A) 24 %; MCH 31.5 pg (25.0-35.0); MCHC 33.4 g/dL (31.0-37.0); MCV 94.1 fL (80.0-100.0); Mean Platelet Volume 7.4; Monocytes # (A) 0.6 k/uL (0-1.0); Monocytes % (A) 9 %; Neutrophils % (A) 58 %; Platelet Count 236 k/uL (150-450); RBC 4.58 m/uL (4.30-5.90); RDW 12.6 % (11.5-15.5)
[2024-01-11 00:12] LABS: ALT 12 U/L (4-49); AST 22 U/L (17-59); African American GFR (CKD) >90 (>60 ml/min/1.73 sqM); Albumin 4.1 g/dL (3.5-5.0); Alkaline Phosphatase 65 U/L (38-126); Anion Gap 12 mmol/L; Blood Urea Nitrogen <2 mg/dL (9-20); Calcium 9.1 mg/dL (8.4-10.2); Carbon Dioxide 18 mmol/L (22-30); Chloride 111 mmol/L (98-107); Glucose 88 mg/dL (74-99); Lipase 146 U/L (23-300); Magnesium 2.3 mg/dL (1.6-2.3); Non-African American GFR(CKD) >90 (>60 ml/min/1.73 sqM); Potassium 3.6 mmol/L (3.5-5.1); Sodium 141 mmol/L (137-145); Total Bilirubin 0.4 mg/dL (0.2-1.3); Total Protein 6.5 g/dL (6.3-8.2)
--- NOTE | 2024-01-11 00:12 | XR ---
EXAMINATION TYPE: XR chest 2V DATE OF EXAM: 01/10/2024 COMPARISON: Chest x-ray January 07, 2024 HISTORY: Weakness TECHNIQUE: Frontal and lateral views of the chest are obtained. FINDINGS: There is no suspicious new focal air space opacity, pleural effusion, or pneumothorax seen . The cardiac silhouette size is stable and within normal limits. The osseous structures are intac t. IMPRESSION: No acute process. No significant change from prior.
[2024-01-11 00:14] LABS: Alcohol 156 mg/dL
[2024-01-11 00:16] LABS: INR 0.9 (<1.2); Partial Thromboplastin Time 25.9 sec (22.0-30.0); Prothrombin Time 10.1 sec (10.0-12.5)
[2024-01-11] MEDS: LORazepam 1 MG TAB PO STA (05:18)
[2024-01-11 06:46] VITALS: BP 135/94; PULSE 63; RESP 18
== END 2024-01-11 06:56 | disposition home or self-care (01) ==
LOC: EC 23:05
DX: F10.939 Alcohol use, unspecified with withdrawal, unspecified (principal); F41.0 Panic disorder [episodic paroxysmal anxiety]; F17.200 Nicotine dependence, unspecified, uncomplicated; F12.90 Cannabis use, unspecified, uncomplicated; Z88.8 Allergy status to other drugs, medicaments and biological substances; Y90.6 Blood alcohol level of 120-199 mg/100 ml
CPT/HCPCS: 36415; 93005; 80053; 83605; 83690; 83735; 84100; 84484; 85025; 85610; 85730; 80320; 71046; 99285; 96374; 96361; J2060

== ENCOUNTER → 2024-02-28 | Outpatient (CLI) | payer OTHER ==
[2024-02-28 20:51] LABS: Alternaria alternata IgE 3.51 kU/L; Birch IgE <0.10 kU/L; Cat Epith & Dander IgE >100.00 kU/L; Cladosporian herbarum IgE <0.10 kU/L; Clam IgE <0.10 kU/L; Codfish IgE 0.12 kU/L; Egg White IgE <0.10 kU/L; Elm IgE <0.10 kU/L; Maple (Box Elder) IgE 0.33 kU/L; Oak IgE 0.25 kU/L; Peanut IgE 0.31 kU/L; Ragweed,Common IgE 3.79 kU/L; Red Top (Bentgrass) IgE 9.22 kU/L; Scallop IgE <0.10 kU/L; Shrimp IgE <0.10 kU/L; Walnut IgE (Food) <0.10 kU/L
== END | disposition home or self-care (01) ==
LOC: LABWHC1 09:06
PROVIDERS: ATTEND Internal Medicine Critical Care Medicine
DX: J45.909 Unspecified asthma, uncomplicated (principal)
CPT/HCPCS: 36415; 82785; 85008; 86003

== ENCOUNTER 2024-03-26 21:44 | Observation (INO) | payer OTHER ==
--- NOTE | 2024-03-26 22:06 | ED ---
Psych HPI - General Source: patient, RN notes reviewed <Lena Yuen - Last Filed: 03/26/24 22:05> <Vamsi Carreon - Last Filed: 03/27/24 04:16> - General Stated Complaint: Anxiety , weakness Time Seen by Provider: 03/26/24 21:59 - History of Present Illness Initial Comments: Quick noteis a 33-year-old male presents emergency department chief complaint of depression and anxiety. Patient states that he has been experiencing anxiety after witnessing his uncle . (Lena Yuen) 33-year-old male with history of alcohol use disorder presenting with chief complaint of anxiety and depression. Patient states that he has had several stressful life events ongoing lately, including the recent of his uncle and his family attempting to evict him from his home. States that this has caused him to turn back to alcohol. He cannot tell me how much he normally drinks in a day nor can he tell me how much he is drinking today. He is confused while obtaining the history. He denies any injury or trauma. He denies any physical pain or symptoms today. (Vamsi Carreon) - Related Data Home Medications Medication Instructions Recorded Confirmed Albuterol Inhaler [Ventolin Hfa 1 - 2 puff INHALATION RT-Q6H PRN 01/07/24 03/19/24 Inhaler] Fluticasone/Umeclidin/Vilanter 1 puff INHALATION RT-DAILY 01/07/24 03/19/24 [Trelegy Ellipta 200-62.5-25] Ipratropium-Albuterol Nebulize 3 ml INHALATION RT-QID PRN 01/07/24 03/19/24 [Duoneb 0.5 mg-3 mg/3 ml Soln] Montelukast [Singulair] 10 mg PO DAILY 01/07/24 03/19/24 traZODone HCL 150 mg PO HS 01/07/24 03/19/24 Nicotine 21Mg/24Hr Patch [Habitrol] 1 patch TRANSDERM DAILY 03/19/24 03/19/24 busPIRone HCL [Buspar] 7.5 mg PO BID 03/19/24 03/19/24 clonazePAM [KlonoPIN] 0.5 mg PO TID PRN 03/19/24 03/19/24 predniSONE See Taper PO DIRECTED 03/19/24 03/19/24 Allergies Allergy/AdvReac Type Severity Reaction Status Date / Time propranolol AdvReac Chest Pain Verified 03/26/24 22:15 Review of Systems ROS Other: All systems not noted in ROS Statement are negative. <Lena Yuen - Last Filed: 03/26/24 22:05> ROS Other: All systems not noted in ROS Statement are negative. <Vamsi Carreon - Last Filed: 03/27/24 04:16> ROS Statement: Those systems with pertinent positive or pertinent negative responses have been documented in the HPI. Past Medical History Past Medical History: Asthma, COPD History of Any Multi-Drug Resistant Organisms: None Reported Past Surgical History: No Surgical Hx Reported Past Psychological History: Anxiety, Depression Smoking Status: Current every day smoker Past Alcohol Use History: Abuse, Daily Past Drug Use History: Marijuana <Lena Yuen - Last Filed: 03/26/24 22:05> General Exam <Lena Yuen - Last Filed: 03/26/24 22:05> General appearance: alert, in no apparent distress Head exam: Present: atraumatic, normocephalic Eye exam: Present: normal appearance Neck exam: Present: normal inspection Respiratory exam: Present: normal lung sounds bilaterally. Absent: respiratory distress, wheezes, rales, rhonchi, stridor Cardiovascular Exam: Present: regular rate, normal rhythm, normal heart sounds. Absent: systolic murmur, diastolic murmur, rubs, gallop, clicks Neurological exam: Present: alert, altered (Intoxicated) Skin exam: Present: normal color <Vamsi Carreon - Last Filed: 03/27/24 04:16> - General Exam Comments Initial Comments: Visual Physical Exam Vital signs reviewed General: Well-appearing, nontoxic, no acute distress. Head: Normocephalic, atraumatic Eyes: PERRLA, EOMI ENT: Airway patent Chest: Nonlabored breathing Skin: No visual rash, normal skin tone Neuro: Alert and oriented 3 Musculoskeletal: No gross abnormalities (Stieler,Lena) Course Vital Signs 03/26/24 22:08 Temperature 97.5 F L Pulse Rate 95 Respiratory 18 Rate Blood Pressure 131/83 O2 Sat by Pulse 100 Oximetry Medical Decision Making <Lena Yuen - Last Filed: 03/26/24 22:05> - Lab Data Result diagrams: 03/27/24 00:08 03/27/24 00:44 <Vamsi Carreon - Last Filed: 03/27/24 04:16> - Medical Decision Making I completed the quick note portion of this chart signed Lena Yuen PA-C (Lena Yuen) Was pt. sent in by a medical professional or institution ([facility], MEDICAL SERVICES COORDINATOR, urgent care, hospital, or fdc...) When possible be specific @ -No Did you speak to anyone other than the patient for history (EMS, parent, family, police, friend...)? What history was obtained from this source @ -No Did you review nursing and triage notes (agree or disagree)? Why? @ -I reviewed and agree with nursing and triage notes Were old charts reviewed (outside hosp., previous admission, EMS record, old EKG, old radiological studies, urgent care reports/EKG's, fdc records)? Report findings @ -No old charts were reviewed Differential Diagnosis (chest pain, altered mental status, abdominal pain women, abdominal pain men, vaginal bleeding, weakness, fever, dyspnea, syncope, headache, dizziness, GI bleed, back pain, seizure, CVA, palpatations, mental he alth, musculoskeletal)? @ -Differential Mental Health Depression, anxiety, bipolar, psychosis, schizophrenia, borderline personality, situational depression, adjustment disorder, behavioral disorder, brain tumor, malingering, substance abuse, encephalopathy, medication reaction, dementia, hypothyroidism, degenerative neurologic disorder, lupus.... This is not meant to be all-inclusive list EKG interpreted by me (3pts min.). @ -As above X-rays interpreted by me (1pt min.). @ -None done CT interpreted by me (1pt min.). @ -None done U/S interpreted by me (1pt. min.). @ -None done What testing was considered but not performed or refused? (CT, X-rays, U/S, labs)? Why? @ -None What meds were considered but not given or refused? Why? @ -None Did you discuss the management of the patient with other professionals (professionals i.e. , [facility], MEDICAL SERVICES COORDINATOR, lab, RT, psych nurse, social worker masters, negative cleaner, teacher, financial services officer, case picker)? Give summary @ -I spoke with Ranye Maria from [facility] who accepted admission Was smoking cessation discussed for >3mins.? @ -No Was critical care preformed (if so, how long)? @ -No Were there social determinants of health that impacted care today? How? (Lit elessness, low income, unemployed, alcoholism, drug addiction, transportation, low edu. Level, literacy, decrease access to med. care, group home, rehab)? @ -No Was there de-escalation of care discussed even if they declined (Discuss DNR or withdrawal of care, Hospice)? DNR status @ -No What co-morbidities impacted this encounter? (DM, HTN, Smoking, COPD, CAD, Cancer, CVA, ARF, Chemo, Hep., AIDS, mental health diagnosis, sleep apnea, morbid obesity)? @ -Alcohol use disorder Was patient admitted / discharged? Hospital course, mention meds given and route, prescriptions, significant lab abnormalities, going to OR and other pertinent info. @ -33-year-old male presenting for anxiety and depression. Admits to alcohol abuse. Serum alcohol 298. Patient will be admitted for alcohol intoxication w ith evaluation by psychiatry tomorrow. I discussed this case my attending Dr. Greene. Undiagnosed new problem with uncertain prognosis? @ -No Drug Therapy requiring intensive monitoring for toxicity (Heparin, Nitro, Insulin, Cardizem)? @ -No Were any procedures done? @ -No Diagnosis/symptom? @ -Alcohol intoxication Acute, or Chronic, or Acute on Chronic? @ -Acute Uncomplicated (without systemic symptoms) or Complicated (systemic symptoms)? @ -Complicated Side effects of treatment? @ -No Exacerbation, Progression, or Severe Exacerbation? @ -No Poses a threat to life or bodily function? How? (Chest pain, [place], [place], pneumonia, PE, COPD, DKA, ARF, appy, cholecystitis, CVA, Diverticulitis, Homicidal, Suicidal, threat to staff... and all critical care pts) @ -Yes (Vamsi Carreon) - Lab Data Lab Results 03/26/24 03/27/24 03/27/24 Range/Units 22:20 00:08 00:08 WBC 7.0 (3.8-10.6) k/uL RBC 5.47 (4.30-5.90) m/uL Hgb 16.4 (13.0-17.5) gm/dL Hct 52.4 (39.0-53.0) % MCV 95.7 (80.0-100.0) fL MCH 29.9 (25.0-35.0) pg MCHC 31.2 (31.0-37.0) g/dL RDW 13.7 (11.5-15.5) % Plt Count 309 (150-450) k/uL MPV 7.9 Neutrophils % 49 % Lymphocytes % 33 % Monocytes % 8 % Eosinophils % 6 % Basophils % 1 % Neutrophils # 3.4 (1.3-7.7) k/uL Lymphocytes # 2.3 (1.0-4.8) k/uL Monocytes # 0.5 (0-1.0) k/uL Eosinophils # 0.4 (0-0.7) k/uL Basophils # 0.1 (0-0.2) k/uL Sodium (137-145) mmol/L Potassium (3.5-5.1) mmol/L Chloride (98-107) mmol/L Carbon Dioxide (22-30) mmol/L Anion Gap mmol/L BUN (9-20) mg/dL Creatinine (0.66-1.25) mg/dL Est GFR (CKD-EPI)AfAm (>60 ml/min/1.73 sqM) Est GFR (CKD-EPI)NonAf (>60 ml/min/1.73 sqM) Glucose (74-99) mg/dL Calcium (8.4-10.2) mg/dL Phosphorus (2.5-4.5) mg/dL Magnesium (1.6-2.3) mg/dL Total Bilirubin (0.2-1.3) mg/dL AST (17-59) U/L ALT (4-49) U/L Alkaline Phosphatase (38-126) U/L Ammonia 12 (<30) umol/L Total Protein (6.3-8.2) g/dL Albumin (3.5-5.0) g/dL Urine Opiates Screen Not Detected (NotDetected) Ur Oxycodone Screen Not Detected (NotDetected) Urine Methadone Screen Not Detected (NotDetected) Ur Barbiturates Screen Not Detected (NotDetected) U Tricyclic Antidepress Not Detected (NotDetected) Ur Phencyclidine Scrn Not Detected (NotDetected) Ur Amphetamines Screen Not Detected (NotDetected) U Methamphetamines Scrn Not Detected (NotDetected) U Benzodiazepines Scrn Not Detected (NotDetected) Urine Cocaine Screen Not Detected (NotDetected) U Marijuana (THC) Screen Detected H (NotDetected) Serum Alcohol mg/dL 03/27/24 Range/Units 00:44 WBC (3.8-10.6) k/uL RBC (4.30-5.90) m/uL Hgb (13.0-17.5) gm/dL Hct (39.0-53.0) % MCV (80.0-100.0) fL MCH (25.0-35.0) pg MCHC (31.0-37.0) g/dL RDW (11.5-15.5) % Plt Count (150-450) k/uL MPV Neutrophils % % Lymphocytes % % Monocytes % % Eosinophils % % Basophils % % Neutrophils # (1.3-7.7) k/uL Lymphocytes # (1.0-4.8) k/uL Monocytes # (0-1.0) k/uL Eosinophils # (0-0.7) k/uL Basophils # (0-0.2) k/uL Sodium 147 H (137-145) mmol/L Potassium 4.3 (3.5-5.1) mmol/L Chloride 112 H (98-107) mmol/L Carbon Dioxide 25 (22-30) mmol/L Anion Gap 10 mmol/L BUN 9 (9-20) mg/dL Creatinine 0.68 (0.66-1.25) mg/dL Est GFR (CKD-EPI)AfAm >90 (>60 ml/min/1.73 sqM) Est GFR (CKD-EPI)NonAf >90 (>60 ml/min/1.73 sqM) Glucose 84 (74-99) mg/dL Calcium 8.7 (8.4-10.2) mg/dL Phosphorus 5.1 H (2.5-4.5) mg/dL Magnesium 2.2 (1.6-2.3) mg/dL Total Bilirubin 0.5 (0.2-1.3) mg/dL AST 57 (17-59) U/L ALT 41 (4-49) U/L Alkaline Phosphatase 84 (38-126) U/L Ammonia (<30) umol/L Total Protein 7.0 (6.3-8.2) g/dL Albumin 4.4 (3.5-5.0) g/dL Urine Opiates Screen (NotDetected) Ur Oxycodone Screen (NotDetected) Urine Methadone Screen (NotDetected) Ur Barbiturates Screen (NotDetected) U Tricyclic Antidepress (NotDetected) Ur Phencyclidine Scrn (NotDetected) Ur Amphetamines Screen (NotDetected) U Methamphetamines Scrn (NotDetected) U Benzodiazepines Scrn (NotDetected) Urine Cocaine Screen (NotDetected) U Marijuana (THC) Screen (NotDetected) Serum Alcohol 298 H* mg/dL Disposition <Lena Yuen - Last Filed: 03/26/24 22:05> Time of Disposition: 04:13 <Vamsi Carreon - Last Filed: 03/27/24 04:16> Clinical Impression: Alcohol intoxication, Depression Disposition: ADMITTED IP TO THIS [facility] Condition: Fair Referrals: None,Stated [Primary Care Provider] - 1-2 days
[2024-03-26 23:10] LABS: Amphetamine Screen,Urine Not Detected (NotDetected); Barbiturate Screen,Urine Not Detected (NotDetected); Benzodiazepines Screen,Urine Not Detected (NotDetected); Cocaine Screen,Urine Not Detected (NotDetected); Methadone Screen, Urine Not Detected (NotDetected); Opiate Screen,Urine Not Detected (NotDetected); Oxycodone Screen, Urine Not Detected (NotDetected); Phencyclidine Screen,Urine Not Detected (NotDetected); Tricyclic Antidepressant,Urine Not Detected (NotDetected); Urn Cannabinoid Scrn Detected (NotDetected)
[2024-03-27] MEDS ORDERED: LORazepam 2 MG/ML INJ IV PRN (00:07)
[2024-03-27 00:37] LABS: Basophils # (A) 0.1 k/uL (0-0.2); Basophils % (A) 1 %; Eosinophils # (A) 0.4 k/uL (0-0.7); Eosinophils % (A) 6 %; HCT 52.4 % (39.0-53.0); HGB 16.4 gm/dL (13.0-17.5); Lymphocytes # (A) 2.3 k/uL (1.0-4.8); Lymphocytes % (A) 33 %; MCH 29.9 pg (25.0-35.0); MCHC 31.2 g/dL (31.0-37.0); MCV 95.7 fL (80.0-100.0); Mean Platelet Volume 7.9; Monocytes # (A) 0.5 k/uL (0-1.0); Monocytes % (A) 8 %; Neutrophils # (A) 3.4 k/uL (1.3-7.7); Neutrophils % (A) 49 %; Platelet Count 309 k/uL (150-450); RBC 5.47 m/uL (4.30-5.90); RDW 13.7 % (11.5-15.5)
[2024-03-27] MEDS: LORazepam 2 MG/ML INJ IV PRN ×2 (00:38→11:27)
[2024-03-27] MEDS: THIAMINE 100 MG/ML 2 ML VIAL IM STA (00:38)
[2024-03-27 03:57] LABS: ALT 41 U/L (4-49); AST 57 U/L (17-59); African American GFR (CKD) >90 (>60 ml/min/1.73 sqM); Albumin 4.4 g/dL (3.5-5.0); Alkaline Phosphatase 84 U/L (38-126); Anion Gap 10 mmol/L; Blood Urea Nitrogen 9 mg/dL (9-20); Calcium 8.7 mg/dL (8.4-10.2); Carbon Dioxide 25 mmol/L (22-30); Chloride 112 mmol/L (98-107); Glucose 84 mg/dL (74-99); Magnesium 2.2 mg/dL (1.6-2.3); Non-African American GFR(CKD) >90 (>60 ml/min/1.73 sqM); Phosphorus 5.1 mg/dL (2.5-4.5); Potassium 4.3 mmol/L (3.5-5.1); Sodium 147 mmol/L (137-145); Total Bilirubin 0.5 mg/dL (0.2-1.3)
[2024-03-27 03:59] LABS: Alcohol 298 mg/dL
[2024-03-27] MEDS ORDERED: NALOXONE 0.4 MG/ML 1 ML VIAL IV PRN (04:11)
[2024-03-27] MEDS ORDERED: ONDANSETRON 4 MG/2 ML VIAL IVP PRN (04:11)
[2024-03-27] MEDS: SODIUM CHLORIDE 0.9% 1,000 ML IV SCH (04:57)
[2024-03-27] MEDS ORDERED: ALBUTEROL NEBULIZED 2.5 MG/3 ML INHALATION PRN (13:18)
[2024-03-27] MEDS ORDERED: HYDROcodone/APAP 5-325MG 1 EACH TAB PO PRN (13:20)
[2024-03-27] MEDS ORDERED: TEMAZEPAM 15 MG CAP PO PRN (13:20)
[2024-03-27] MEDS ORDERED: traZODone HCL 100 MG TAB PO PRN (13:32)
--- NOTE | 2024-03-27 13:39 | XR ---
EXAMINATION TYPE: XR chest 1V portable DATE OF EXAM: 03/27/2024 COMPARISON: 01/10/2024 HISTORY: Shortness of breath TECHNIQUE: Single frontal view of the chest is obtained. FINDINGS: There is no focal air space opacity, pleural effusion, or pneumothorax seen. The cardiac silhouette size is within normal limits. The osseous structures are intact. Hyperexpansion can be s een with COPD. 2 mm upper lobe nodule too small to characterize. IMPRESSION: No acute process.
--- NOTE | 2024-03-27 13:40 | P.CN ---
Psychiatric Consult - . Consult date: 03/27/24 Consult:: 03/27/24 12:39 IDENTIFYING DATA: This patient is a 33-year-old male, currently lives in a house alone, used to live with his uncle however he , he is unemployed, he is single he has no kids. REASON FOR REFERRAL: Psychiatry was consulted for depression HISTORY OF PRESENT ILLNESS: The patient presented to the hospital yesterday complaining of depression and anxiety. Patient had claimed that his uncle recently . He also made comments of his family attempting to evict him. He was admitting to increasing alcohol use recently, claims that he has been drinking about 3 cans of beer a day. Urine drug screen is positive for THC. Patient's blood alcohol was 298. Nurse taking care of patient states that he is not suicidal however going through withdrawals, is anxious requiring Ativan. Patient was seen today at the bedside, agreeable to speak to consumer loan underwriter. He appeared to be mildly upset, states that he had to see his uncle in front of him, claims that he was try to give him CPR. He states that the next day he had a seizure and was attempting to go to the primary care physician however came to the hospital. States that he has been going through probate court to keep his house and that has been stressful for him. He states that he has been having depression, anxiety. States that his sleep and appetite are poor. Denies any paranoia at this time, claims that has been to rehab several times in the past, states that he does not have alcohol cravings, he was fairly future oriented and did not want to be admitted to the mental health unit, denies any access to guns or weapons. At this time patient denies any suicidal or homical ideations, intent or plan. Patient denies any auditory, visual hallucinations and denies any paranoia or delusions. Patients admits to using cigarettes daily, claims that he drinks several cans of beer a day, states that he smokes marijuana occasionally, denies any other recreational drug use. PAST PSYCHIATRIC HISTORY: Patient has a a history of depression and anxiety, alcohol use. Patient is currently on Klonopin, BuSpar, trazodone. States that his last psychiatric hospitalization was in [facility] in August 2023. Claims that he used to follow-up at [facility] however has not done so in a while. Patient denies any history of suicide attempts in the past. Past Medical History: Asthma, COPD History of Any Multi-Drug Resistant Organisms: None Reported Past Surgical History: No Surgical Hx Reported Past Psychological History: Anxiety, Depression Smoking Status: Current every day smoker Past Alcohol Use History: Abuse, Daily Past Drug Use History: Marijuana ALLERGIES: as per EMR. CHEMICAL DEPENDENCY HISTORY: as per HPI. FAMILY PSYCHIATRIC/SUBSTANCE USE HISTORY: Denies SOCIAL HISTORY: Patient was born and raised in [place]. Claims that he currently lives alone in a house, states that he used to live with his uncle however he . States that he has no kids he is single. He is unemployed currently, used to work as a salad chef. He claims that he does not have any legal history. MENTAL STATUS EXAM: General Appearance: Patient appears to be thin, unkempt appearance stated age is alert, attempts to be cooperative. Patient appears to have fair hygiene and grooming wearing hospital gown with fair eye contact. Behavior: Patient is calmly lying in bed without any agitated behavior. Attempts to cooperate. Speech: Patient's speech is fluent and nonpressured. Mood/Affect: Patient reports their mood is "depressed and anxious", affect is congruent Suicidality/Homicidality: Patient denies having any suicidal or homicidal ideation intent or plan. Perceptions: Patient denies any visual hallucinations and denies any auditory hallucinations Though content/process: There is no evidence of any delusional thought content and thought process is linear and goal-directed. Future oriented Memory and concentration: AOX3, grossly intact for the purposes of this session. Can spell "WORLD" backwards Judgment and insight: Poor IMPRESSIONS: Major depressive disorder, mild Alcohol use disorder, currently in withdrawal Nicotine dependence Cannabis use disorder mild PLAN: -At this time patient DOES NOT meet criteria for inpatient psychiatric admission. Patient was offered voluntary admission to mental health unit however he declined adamantly, states that he is not suicidal or homicidal, claims that he is willing to start medications and do outpatient treatment instead, he is future oriented, he denies any access to guns or weapons. Would recommend the following medication changes/additions: Start Zoloft 50 mg daily for mood/anxiety, Remeron 15 mg nightly for mood/insomnia/appetite, Librium 20 mg 3 times daily scheduled with plan to titrate down for alcohol withdrawal. He was offered anticraving medications for alcohol use however he declined. -CIWA protocol with PRN Ativan for alcohol withdrawal. Continue to monitor vital signs. -insole department worker to provide patient with outpatient mental health/psychiatry resources for appropriate follow up upon discharge -Physician Practice Consultant spoke with patient about substance abuse and the harmful effects on medical and mental health, patient verbally understood and agreed. -insole department worker to provide patient substance use treatment resources including AA/NA meetings in the community. -insole department worker to provide patient with access line number to call for inpatient substance rehab -Communicated plan to patient's nurse -Psychiatry will sign off at this time -Please contact with any questions. 03/27/24 13:33
[2024-03-27] MEDS: SERTRALINE 50 MG TAB PO SCH (15:04)
[2024-03-27] MEDS: NICOTINE 21MG/24HR PATCH TRANSDERM SCH (15:05)
[2024-03-27] MEDS ORDERED: IPRATROPIUM 0.5 MG/2.5 ML NEBU INHALATION SCH (16:00)
[2024-03-27] MEDS: IPRATROPIUM-ALBUTEROL 3 ML NEB INHALATION SCH (16:33)
[2024-03-27] MEDS ORDERED: LORazepam 1 MG/0.5 ML VIAL IV PRN (17:42)
[2024-03-27] MEDS: LORazepam 1 MG/0.5 ML VIAL IV PRN ×2 (17:49→20:18)
[2024-03-27 18:03] VITALS: RESP 16
[2024-03-27] MEDS: MIRTAZAPINE 15 MG TAB PO SCH (20:18)
[2024-03-27] MEDS: HEPARIN SODIUM,PORCINE 5,000 UNIT/ML 1 ML VIAL SQ SCH (20:18)
[2024-03-27] MEDS: SYMBICORT 80-4.5 MCG INHALER INHALATION SCH (20:27)
[2024-03-27] MEDS ORDERED: traZODone HCL 100 MG TAB PO SCH (21:00)
--- NOTE | 2024-03-27 22:01 | HP ---
HISTORY AND PHYSICAL CHIEF COMPLAINT: Anxiety, weakness. HISTORY OF PRESENT ILLNESS: This is a 33-year-old gentleman with a past medical history of depression, anxiety, was complaining of anxiety. The patient also had alcohol use disorder. The patient's uncle recently and undergoing at this time according to him. The patient has turned back to alcohol and alcohol level was found to be 298 and the patient was admitted for further evaluation. The patient also had symptoms of withdrawals and tremors also at this time. There is no history of any fever, rigor, or chills. PAST MEDICAL HISTORY: History of EtOH, history of asthma, COPD, rest of the history and rest of the chart is also reviewed. HOME MEDICATIONS: Reviewed include Desyrel, dose and rest of medications reviewed. ALLERGIES: Propranolol. FAMILY HISTORY: No history of heart disease or strokes in the family. SOCIAL HISTORY: No alcohol, smoking, or THC. REVIEW OF SYSTEMS: A 14-point review is negative except as mentioned. PHYSICAL EXAMINATION: VITAL SIGNS: Pulse is 89, blood pressure 110/68, respirations 18. HEENT: Conjunctivae normal. NECK: No jugular venous distention. CARDIOVASCULAR: S1, S2. RESPIRATIONS: Diminished at the bases, few scattered rhonchi and crackles. ABDOMEN: Soft, nontender. NERVOUS SYSTEM: Diffusely weak, tremors present. SKIN: Some skin excoriations present. JOINTS: No active deforming arthropathy. LABORATORY DATA: Reviewed. ASSESSMENT: 1. Acute alcohol intoxication. 2. Early delirium tremens. 3. Severe anxiety and social stressors. 4. Hypernatremia and dehydration present on admission. 5. Asthma, COPD. 6. Anxiety, depression. RECOMMENDATIONS AND DISCUSSION: This 33-year-old gentleman presented with multiple complex medical issues, we will monitor the patient closely. Continue the current medications, CIWA protocol. Recommend Librium. Resume the home medications. Psychiatric evaluation for anxiety. Prognosis guarded. Further recommendations to follow. Recommended Social Work evaluation and outpatient alcohol rehab also. MMODL / IJN: [id number] / MTDD
[2024-03-28] MEDS: PANTOPRAZOLE 40 MG TABLET PO SCH (05:42)
[2024-03-28 07:59] VITALS: BP 138/85; TEMP 97.7
[2024-03-28 08:41] LABS: Appearance,Urine Clear (Clear); Bilirubin,Urine Negative (Negative); Blood,Urine Negative (Negative); Color,Urine Yellow; Glucose,Urine (UA) Negative (Negative); Ketones,Urine Trace (Negative); Leukocyte Esterase,Urine Negative (Negative); Nitrite,Urine Negative (Negative); Protein,Urine Trace (Negative); Specific Gravity,Urine 1.025 (1.001-1.035)
[2024-03-28] MEDS ORDERED: NICOTINE 21MG/24HR PATCH TRANSDERM SCH (09:00)
[2024-03-28] MEDS: MONTELUKAST 10 MG TAB PO SCH (10:49)
[2024-03-28] MEDS: THIAMINE 100 MG TAB PO SCH (10:49)
[2024-03-28 12:26] VITALS: PULSE 76
--- NOTE | 2024-03-28 13:24 | P.PN ---
Progress Note - Text Progress Note Date: 03/28/24 Interval history: Patient was seen today for psychiatric follow-up regarding patient's depression anxiety and alcohol use disorder/withdrawal. Patient's nurse claims that patient has been doing better, did receive Ativan this morning for withdrawal. Patient appeared to have mild improvement in his affect today, claims that he is doing a bit better. Claims that he continues to feel anxious at this time, claims that his mood has been mildly improving. We spoke about increasing the Zoloft which she is okay with once he is discharged today. He states that he might be interested in going to [place] and will take the resources and number for screening. States that he was able to sleep better last night, claims having improving appetite. He was future oriented on getting back home to take care of his belongings and also his uncle that . Denies any suicidal homicidal ideations intent or plan, denies any auditory or visual hallucinations. MENTAL STATUS EXAM: General Appearance: Patient appears to be thin, unkempt appearance stated age is alert, attempts to be cooperative. Patient appears to have fair hygiene and grooming wearing hospital gown with fair eye contact. Behavior: Patient is calmly lying in bed without any agitated behavior. Attempts to cooperate. Speech: Patient's speech is fluent and nonpressured. Improvement Mood/Affect: Patient reports their mood is "a bit anxious", affect is congruent, improving mildly Suicidality/Homicidality: Patient denies having any suicidal or homicidal ideation intent or plan. Perceptions: Patient denies any visual hallucinations and denies any auditory hallucinations Though content/process: There is no evidence of any delusional thought content and thought process is linear and goal-directed. Future oriented Memory and concentration: AOX3, grossly intact for the purposes of this session. Judgment and insight: Improving mildly IMPRESSIONS: Major depressive disorder, mild Alcohol use disorder, currently in withdrawal Nicotine dependence Cannabis use disorder mild PLAN: -At this time patient DOES NOT meet criteria for inpatient psychiatric admission. Would recommend the following medication changes/additions: Increase starting tomorrow Zoloft 100 mg daily for mood/anxiety, Remeron 15 mg nightly for mood/insomnia/appetite, continue tapering down Librium with plan to titrate down for alcohol withdrawal. He was offered anticraving medications for alcohol use however he declined. -CIWA protocol with PRN Ativan for alcohol withdrawal. Continue to monitor vital signs. -service worker to provide patient with outpatient mental health/psychiatry resources for appropriate follow up upon discharge -Vice President Of Academic Affairs spoke with patient about substance abuse and the harmful effects on medical and mental health, patient verbally understood and agreed. -service worker to provide patient substance use treatment resources including AA/NA meetings in the community. -service worker to provide patient with access line number to call for inpatient substance rehab -Communicated plan to patient's nurse -Psychiatry will sign off at this time -Please contact with any questions.
--- NOTE | 2024-03-28 13:38 | DS ---
DISCHARGE SUMMARY FINAL DIAGNOSES: 1. Acute alcohol intoxication. 2. Early delirium tremens. 3. Severe anxiety, social stressors. 4. Hyponatremia. 5. Dehydration present on admission. DISCHARGE DISPOSITION: The patient will be discharged in stable condition and guarded prognosis. HISTORY OF PRESENT ILLNESS: This 33-year-old gentleman admitted with acute alcohol intoxication, multiple medical issues as mentioned, treated symptomatically, improved significantly. PHYSICAL EXAMINATION: VITALS: Stable. CARDIOVASCULAR: S1, S2. ABDOMEN: Soft. NERVOUS SYSTEM: Nonfocal. The patient will be discharged with followup with primary physician and as well as alcohol rehab. See orders, followup with psych as recommended. See medication sheet for list of medications. PROGNOSIS: Guarded. MMODL / IJN: [id number] /
[2024-03-29] MEDS ORDERED: SERTRALINE 100 MG TAB PO SCH (09:00)
== END 2024-03-28 17:37 | disposition home or self-care (01) ==
LOC: EC 21:44 → 6NMEDSUR 03-27 04:12
PROVIDERS: ADMIT Hospitalist; ATTEND Hospitalist
DX: F10.129 Alcohol abuse with intoxication, unspecified (principal); F10.131 Alcohol abuse with withdrawal delirium; F32.0 Major depressive disorder, single episode, mild; E86.0 Dehydration; E87.0 Hyperosmolality and hypernatremia; J44.89 Other specified chronic obstructive pulmonary disease; Y90.8 Blood alcohol level of 240 mg/100 ml or more; F41.9 Anxiety disorder, unspecified; F17.210 Nicotine dependence, cigarettes, uncomplicated; F12.90 Cannabis use, unspecified, uncomplicated; Z79.51 Long term (current) use of inhaled steroids; Z79.899 Other long term (current) drug therapy; Z56.0 Unemployment, unspecified; Z63.4 Disappearance and death of family member; Z60.8 Other problems related to social environment
CPT/HCPCS: 96376 ×3; 96361 ×3; 82075; 96374; 99285; 36415; 94640 ×4; 80053; 82140; 83735; 84100; 85025; 81003; 80306; 80320; 71045; G0378 ×2; S4990 ×2; J2060 ×2; J3411

== ENCOUNTER 2024-04-01 10:42 | Emergency (ER) | payer OTHER ==
[2024-04-01 10:54] VITALS: TEMP 97.5
[2024-04-01] MEDS: SODIUM CHLORIDE 0.9% 1,000 ML IV STA (11:24)
[2024-04-01] MEDS: LORazepam 2 MG/ML INJ IV STA (11:24)
[2024-04-01] MEDS: SODIUM CHLORIDE 0.9% 500 ML 500 ML IV STA (11:34)
[2024-04-01 11:44] LABS: Basophils % (A) 0 %; Eosinophils # (A) 0.1 k/uL (0-0.7); Eosinophils % (A) 1 %; HGB 15.7 gm/dL (13.0-17.5); Lymphocytes # (A) 0.6 k/uL (1.0-4.8); Lymphocytes % (A) 4 %; MCH 30.4 pg (25.0-35.0); MCHC 32.1 g/dL (31.0-37.0); MCV 94.7 fL (80.0-100.0); Mean Platelet Volume 7.4; Monocytes # (A) 0.5 k/uL (0-1.0); Monocytes % (A) 3 %; Neutrophils # (A) 14.2 k/uL (1.3-7.7); Neutrophils % (A) 92 %; Platelet Count 355 k/uL (150-450); RBC 5.17 m/uL (4.30-5.90); RDW 13.3 % (11.5-15.5); WBC 15.6 k/uL (3.8-10.6)
[2024-04-01 11:56] LABS: ALT 33 U/L (4-49); AST 38 U/L (17-59); African American GFR (CKD) >90 (>60 ml/min/1.73 sqM); Albumin 4.3 g/dL (3.5-5.0); Alkaline Phosphatase 142 U/L (38-126); Anion Gap 10 mmol/L; Blood Urea Nitrogen 12 mg/dL (9-20); Calcium 9.4 mg/dL (8.4-10.2); Carbon Dioxide 21 mmol/L (22-30); Chloride 108 mmol/L (98-107); Glucose 92 mg/dL (74-99); Magnesium 1.8 mg/dL (1.6-2.3); Non-African American GFR(CKD) >90 (>60 ml/min/1.73 sqM); Potassium 3.9 mmol/L (3.5-5.1); Sodium 139 mmol/L (137-145); Total Protein 6.6 g/dL (6.3-8.2)
[2024-04-01 12:08] LABS: Alcohol 134 mg/dL
--- NOTE | 2024-04-01 12:45 | ED ---
General Adult HPI - General Chief complaint: Seizure Stated complaint: Dizziness Time Seen by Provider: 04/01/24 10:59 Source: patient, EMS, RN notes reviewed, old records reviewed Mode of arrival: EMS Limitations: no limitations - History of Present Illness Initial comments: 33-year-old male presents emergency department via EMS chief complaint of feeli ng like he is going to have a seizure. Patient is very anxious, states that he has anxiety issues. Patient states he was admitted in the past for possible seizure related to alcohol. He states that he has not been drinking much but still drink today. Patient denies any chest pain no palpitation states he just feels tingly when he starts breathing rapidly. Patient denies being suicidal homicidal. - Related Data Home Medications Medication Instructions Recorded Confirmed Albuterol Inhaler [Ventolin Hfa 1 - 2 puff INHALATION RT-Q6H PRN 01/07/24 04/01/24 Inhaler] Fluticasone/Umeclidin/Vilanter 1 puff INHALATION RT-DAILY 01/07/24 04/01/24 [Trelegy Ellipta 200-62.5-25] Ipratropium-Albuterol Nebulize 3 ml INHALATION RT-QID PRN 01/07/24 04/01/24 [Duoneb 0.5 mg-3 mg/3 ml Soln] Montelukast [Singulair] 10 mg PO DAILY 01/07/24 04/01/24 Nicotine 21Mg/24Hr Patch [Habitrol] 1 patch TRANSDERM DAILY 03/19/24 04/01/24 clonazePAM [KlonoPIN] 0.25 - 0.5 mg PO TID PRN 03/19/24 04/01/24 predniSONE 10 mg PO DAILY PRN 03/19/24 04/01/24 Mirtazapine [Remeron] 15 mg PO DIRECTED 04/01/24 04/01/24 busPIRone HCL [Buspar] 7.5 mg PO BID PRN 04/01/24 04/01/24 chlordiazePOXIDE HCl [Librium] See Taper PO DIRECTED 04/01/24 04/01/24 Previous Rx's Medication Instructions Recorded Sertraline [Zoloft] 100 mg PO DAILY 30 Days #30 tab 03/28/24 traZODone HCL [Desyrel] 100 mg PO HS PRN tab 03/28/24 Thiamine [Vitamin B-1] 100 mg PO DAILY #30 tab 04/01/24 Allergies Allergy/AdvReac Type Severity Reaction Status Date / Time propranolol AdvReac Chest Pain Verified 04/01/24 12:26 Review of Systems ROS Statement: Those systems with pertinent positive or pertinent negative responses have been documented in the HPI. ROS Other: All systems not noted in ROS Statement are negative. Past Medical History Past Medical History: Asthma, COPD History of Any Multi-Drug Resistant Organisms: None Reported Past Surgical History: No Surgical Hx Reported Past Psychological History: Anxiety, Depression Smoking Status: Current every day smoker Past Alcohol Use History: Abuse, Daily Past Drug Use History: Marijuana General Exam Limitations: no limitations General appearance: alert, in no apparent distress Head exam: Present: atraumatic, normocephalic, normal inspection Eye exam: Present: normal appearance, PERRL, EOMI. Absent: scleral icterus, conjunctival injection, periorbital swelling ENT exam: Present: normal exam, mucous membranes moist Neck exam: Present: normal inspection, full ROM. Absent: tenderness, meningismus, lymphadenopathy Respiratory exam: Present: normal lung sounds bilaterally. Absent: respiratory distress, wheezes, rales, rhonchi, stridor Cardiovascular Exam: Present: regular rate, normal rhythm, normal heart sounds. Absent: systolic murmur, diastolic murmur, rubs, gallop, clicks GI/Abdominal exam: Present: soft, normal bowel sounds. Absent: distended, tenderness, guarding, rebound, rigid Extremities exam: Present: normal inspection, full ROM, normal capillary refill. Absent: tenderness, pedal edema, joint swelling, calf tenderness Neurological exam: Present: alert, oriented X3 Psychiatric exam: Present: anxious Course Vital Signs 04/01/24 10:48 Temperature 97.5 F L Pulse Rate 97 Respiratory 19 Rate Blood Pressure 152/80 O2 Sat by Pulse 96 Oximetry EKG Findings - EKG Comments: EKG Findings:: EKG performed at 11: 27 sinus rhythm rate of 95 VA 147 QRS 97 QT/QTc 356/409 - EKG Results: EKG: interpreted by ERMD Procedures - [place] Protocol (Time Out) Nurse: Lulu Pulido Medical Decision Making - Medical Decision Making Was pt. sent in by a medical professional or institution (, PA, DECK MOLDER, urgent care, hospital, or intermediate...) When possible be specific @ -No Did you speak to anyone other than the patient for history (EMS, parent, family, police, friend...)? What history was obtained from this source @ -No Did you review nursing and triage notes (agree or disagree)? Why? @ -I reviewed and agree with nursing and triage notes Were old charts reviewed (outside hosp., previous admission, EMS record, old EKG, old radiological studies, urgent care reports/EKG's, intermediate records)? Report findings @ -No old charts were reviewed Differential Diagnosis (chest pain, altered mental status, abdominal pain women, abdominal pain men, vaginal bleeding, weakness, fever, dyspnea, syncope, headache, dizziness, GI bleed, back pain, seizure, CVA, palpatations, mental health, musculoskeletal)? @ -Differential Mental Health Depression, anxiety, bipolar, psychosis, schizophrenia, borderline personality, situational depression, adjustment disorder, behavioral disorder, brain tumor, malingering, substance abuse, encephalopathy, medication reaction, dementia, hypothyroidism, degenerative neurologic disorder, lupus.... This is not meant to be all-inclusive list EKG interpreted by me (3pts min.). @ -As above X-rays interpreted by me (1pt min.). @ -None done CT interpreted by me (1pt min.). @ -None done U/S interpreted by me (1pt. min.). @ -None done What testing was considered but not performed or refused? (CT, X-rays, U/S, labs)? Why? @ -None What meds were considered but not given or refused? Why? @ -None Did you discuss the management of the patient with other professionals (professionals i.e. , PA, DECK MOLDER, lab, RT, psych nurse, social welfare administrator, automation engineering technician, teacher, chief risk officer, home health care case manager)? Give summary @ -No Was smoking cessation discussed for >3mins.? @ -No Was critical care preformed (if so, how long)? @ -No Were there social determinants of health that impacted care today? How? (Homelessness, low income, unemployed, alcoholism, drug addiction, transportation, low edu. Level, literacy, decrease access to med. care, [facility], rehab)? @ -No Was there de-escalation of care discussed even if they declined (Discuss DNR or withdrawal of care, Hospice)? DNR status @ -No What co-morbidities impacted this encounter? (DM, HTN, Smoking, COPD, CAD, Cancer, CVA, ARF, Chemo, Hep., AIDS, mental health diagnosis, sleep apnea, morbid obesity)? @ -Alcohol abuse Was patient admitted / discharged? Hospital course, mention meds given and route, prescriptions, significant lab abnormalities, going to OR and other pertinent info. @ -Discharge patient feels great improved after Ativan. Patient laboratory studies essentially unremarkable. We discussed following up with rehab regarding his alcohol abuse. Patient discharged on thiamine, folate return parens discussed Undiagnosed new problem with uncertain prognosis? @ -No Drug Therapy requiring intensive monitoring for toxicity (Heparin, Nitro, Insulin, Cardizem)? @ -No Were any procedures done? @ -No Diagnosis/symptom? @ -Alcohol abuse, anxiety Acute, or Chronic, or Acute on Chronic? @ -Acute Uncomplicated (without systemic symptoms) or Complicated (systemic symptoms)? @ -Uncomplicated Side effects of treatment? @ -No Exacerbation, Progression, or Severe Exacerbation? @ -No Poses a threat to life or bodily function? How? (Chest pain, [place], [place], pneumonia, PE, COPD, DKA, ARF, appy, cholecystitis, CVA, Diverticulitis, Homicidal, Suicidal, threat to staff... and all critical care pts) @ -No - Lab Data Result diagrams: 04/01/24 11:22 04/01/24 11:22 Lab Results 04/01/24 04/01/24 Range/Units 11:22 11:22 WBC 15.6 H (3.8-10.6) k/uL RBC 5.17 (4.30-5.90) m/uL Hgb 15.7 (13.0-17.5) gm/dL Hct 49.0 (39.0-53.0) % MCV 94.7 (80.0-100.0) fL MCH 30.4 (25.0-35.0) pg MCHC 32.1 (31.0-37.0) g/dL RDW 13.3 (11.5-15.5) % Plt Count 355 (150-450) k/uL MPV 7.4 Neutrophils % 92 % Lymphocytes % 4 % Monocytes % 3 % Eosinophils % 1 % Basophils % 0 % Neutrophils # 14.2 H (1.3-7.7) k/uL Lymphocytes # 0.6 L (1.0-4.8) k/uL Monocytes # 0.5 (0-1.0) k/uL Eosinophils # 0.1 (0-0.7) k/uL Basophils # 0.0 (0-0.2) k/uL Sodium 139 (137-145) mmol/L Potassium 3.9 (3.5-5.1) mmol/L Chloride 108 H (98-107) mmol/L Carbon Dioxide 21 L (22-30) mmol/L Anion Gap 10 mmol/L BUN 12 (9-20) mg/dL Creatinine 0.72 (0.66-1.25) mg/dL Est GFR (CKD-EPI)AfAm >90 (>60 ml/min/1.73 sqM) Est GFR (CKD-EPI)NonAf >90 (>60 ml/min/1.73 sqM) Glucose 92 (74-99) mg/dL Calcium 9.4 (8.4-10.2) mg/dL Magnesium 1.8 (1.6-2.3) mg/dL Total Bilirubin 1.0 (0.2-1.3) mg/dL AST 38 (17-59) U/L ALT 33 (4-49) U/L Alkaline Phosphatase 142 H (38-126) U/L Total Protein 6.6 (6.3-8.2) g/dL Albumin 4.3 (3.5-5.0) g/dL Serum Alcohol 134 mg/dL Disposition Clinical Impression: Alcohol intoxication, Anxiety Disposition: HOME SELF-CARE Condition: Stable Instructions (If sedation given, give patient instructions): Abuse of Alcohol (ED) Additional Instructions: Please return to the Emergency Department if symptoms worsen or any other concerns. Prescriptions: Thiamine [Vitamin B-1] 100 mg PO DAILY #30 tab Is patient prescribed a controlled substance at d/c from ED?: No Referrals: Pancho Ray MD [Primary Care Provider] - 1-2 days Time of Disposition: 12:44
[2024-04-01 12:59] VITALS: BP 113/57; PULSE 107; RESP 16
== END 2024-04-01 13:10 | disposition home or self-care (01) ==
LOC: EC 10:42
DX: F41.9 Anxiety disorder, unspecified (principal); F10.129 Alcohol abuse with intoxication, unspecified; F17.200 Nicotine dependence, unspecified, uncomplicated; F12.90 Cannabis use, unspecified, uncomplicated; Y90.6 Blood alcohol level of 120-199 mg/100 ml; Z88.8 Allergy status to other drugs, medicaments and biological substances
CPT/HCPCS: 36415; 93005; 80053; 83735; 85025; 80320; 99285; 96374; 96361; J2060